=== PATIENT | female | born 1950 | race Caucasian/White ===

== ENCOUNTER → 2018-03-31 | Outpatient (CLI) | payer MEDICARE, OTHER | END | disposition home or self-care (01) | LOC: CFH 13:58 | PROVIDERS: ATTEND Nurse Practitioner Family | DX: Z12.2 Encounter for screening for malignant neoplasm of respiratory organs (principal); J98.11 Atelectasis; Z87.891 Personal history of nicotine dependence | CPT/HCPCS: G0297 ==

== ENCOUNTER 2018-11-26 16:10 | Emergency (ER) | payer MEDICARE, OTHER ==
[~2018-11-26] VITALS: Ht 170.2 cm; Wt 136.8 kg
--- NOTE | 2018-11-26 16:12 | NUR ---
PT CALLED FOR TRIAGE, PT TO BR WITH URINE CUP.
[2018-11-26 16:48] LABS: CULTURE INDICATED? YES; MICROSCOPIC INDICATED
[2018-11-26] MEDS ORDERED: ACETAMINOPHEN 325 MG TABLET PO ONE (17:00)
[2018-11-26] MEDS ORDERED: ONDANSETRON 2MG/ML, 2ML IVPush ONE (17:00)
[2018-11-26] MEDS ORDERED: SODIUM CHLORIDE FLUSH 10ML SYR IVF ONE (17:00)
[2018-11-26] MEDS ORDERED: MORPHINE SULFATE 4 MG/ML, 1ML IVPush PRN (17:00)
[2018-11-26 17:06] LABS: BASOPHILS # (AUTO) 0.13 x10^3/uL (0-0.1); BASOPHILS % (AUTO) 1 % (0-1); EOSINOPHILS # (AUTO) 0.12 x10^3/uL (0-0.4); EOSINOPHILS % (AUTO) 1 % (1-7); LYMPHOCYTES # (AUTO) 0.74 x10^3/uL (1-3.4); LYMPHOCYTES % (AUTO) 7 % (22-44); MD NO; MEAN CORPUSCULAR HEMOGLOBIN 33.3 pg (27.0-34.8); MEAN CORPUSCULAR HGB CONC 33.3 g/dL (32.4-35.8); MEAN PLATELET VOLUME 7.7 fL (7.4-10.4); MONOCYTES # (AUTO) 0.73 x10^3/uL (0.2-0.8); MONOCYTES % (AUTO) 7 % (2-9); NEUTROPHILS # (AUTO) 9.09 x10^3/uL (1.8-6.8); NEUTROPHILS % (AUTO) 84 % (42-75); PLATELET COUNT 300 x10^3/uL (130-400); RED BLOOD COUNT 4.02 x10^6/uL (3.82-5.3); RED CELL DISTRIBUTION WIDTH 15.1 % (9.6-15.2)
[2018-11-26 17:15] LABS: ALBUMIN 3.7 g/dL (3.4-5.0); ANION GAP 6 mmol/L (5-15); CALCIUM 9.5 mg/dL (8.5-10.1); CHLORIDE 101 mmol/L (98-107)
[2018-11-26 17:22] LABS: ALANINE AMINOTRANSFERASE 31 U/L (12-78); ALKALINE PHOSPHATASE 108 U/L (45-117); BILIRUBIN,TOTAL 1.3 mg/dL (0.2-1.0); CREATININE 1.31 mg/dL (0.55-1.02); TOTAL PROTEIN 7.7 g/dL (6.4-8.2)
--- NOTE | 2018-11-26 18:00 | NUR ---
LLQ PAIN AND CRAMPING SINCE WEDNESDAY WITH NAUSEA
--- NOTE | 2018-11-26 18:09 | NUR ---
PT STATES SHE HAS NOW DEVELOPED RIGHT CHEST WALL PAIN. EKG TO BE DONE
[2018-11-26] MEDS ORDERED: ONDANSETRON 2MG/ML, 2ML ONE (18:11)
[2018-11-26] MEDS ORDERED: MORPHINE SULFATE 4 MG/ML, 1ML ONE (18:12)
[2018-11-26] MEDS ORDERED: ACETAMINOPHEN 325 MG TABLET ONE (18:12)
[2018-11-26] MEDS ORDERED: OMNIPAQUE 350 MG/ML, 100ML BOTTLE ONE (18:50)
[2018-11-26 19:22] LABS: MICROSCOPIC INDICATED
[2018-11-26 19:30] LABS: CULTURE INDICATED? YES
[2018-11-26] MEDS ORDERED: CEFTRIAXONE PMX 1GM/50ML 50 ML IV ONE (19:30)
[2018-11-26] MEDS ORDERED: CEFTRIAXONE PMX 1GM/50ML 50 ML ONE (19:32)
[2018-11-26 19:44] VITALS: BP 107/47
--- NOTE | 2018-11-26 20:23 | NUR ---
NO PAIN SINCE MEDICATED FOR SAME. PT ANTIBIOTICS COMPLETED. GIVEN DISCHARGE INSTRUCTIONS AND AMBULTED TO DISCHARGE WINDOW, STEADY GAIT
== END 2018-11-26 20:26 | disposition home or self-care (01) ==
LOC: ED 17:26
DX: N10 Acute pyelonephritis (principal); N28.1 Cyst of kidney, acquired; R19.7 Diarrhea, unspecified; R10.32 Left lower quadrant pain; I10 Essential (primary) hypertension; E11.9 Type 2 diabetes mellitus without complications; Z87.891 Personal history of nicotine dependence
CPT/HCPCS: 36415; 74177; 80053; 81001; 83690; 85025; 87077; 87086; 93005; 96365; 96375; 99284; J0696; J2270; J2405; Q9967; 87186

== ENCOUNTER 2020-01-01 10:09 | Outpatient (CLI) | payer MEDICARE, OTHER | END 2020-01-01 23:59 | disposition home or self-care (01) | LOC: CFH 10:09 | PROVIDERS: ATTEND Nurse Practitioner Family | DX: Z12.2 Encounter for screening for malignant neoplasm of respiratory organs (principal); J43.9 Emphysema, unspecified; Z87.891 Personal history of nicotine dependence | CPT/HCPCS: G0297 ==

== ENCOUNTER → 2020-03-12 | Outpatient (CLI) | payer MEDICARE, OTHER ==
[~2020-03-12] MED LIST: REGADENOSON 0.4 MG/5 ML SYRINGE ONE
== END | disposition home or self-care (01) ==
LOC: CVU 09:26
PROVIDERS: ATTEND Internal Medicine Cardiovascular Disease
DX: I36.1 Nonrheumatic tricuspid (valve) insufficiency (principal); I10 Essential (primary) hypertension; R07.89 Other chest pain; R00.2 Palpitations
CPT/HCPCS: 78452; 93017; 93306; A9502; J2785